=== PATIENT | female | born 1985 | race Caucasian/White ===

== ENCOUNTER 2022-09-16 16:28 | Outpatient (CLI) | payer OTHER, SELFPAY ==
[2022-09-16 17:00] LABS: Hematocrit 37.1 % (37.0-47.0); Mean Corpuscular Volume 97.1 fl (80-100); Mean Platelet Volume 10.1 fl (7.4-10.4); Platelet Count Result 279 k/mm3 (150-375); Red Blood Count 3.82 M/mm3 (4.2-5.4); Red Cell Distribution Width 12.2 % (11.5-14.5); White Blood Count 10.5 K/mm3 (4.5-10.0)
[2022-09-16 17:09] LABS: Alanine Aminotransferase 19 U/L (6-35); Alkaline Phosphatase 76 U/L (38-126); Anion Gap 5 mmol/L (8-16); Aspartate Amino Transferase 25 U/L (14-36); Bilirubin,Total 0.3 mg/dL (0.2-1.3); Blood Urea Nitrogen 11 mg/dL (7-17); Calcium 8.5 mg/dL (8.4-10.2); Carbon Dioxide 24 mmol/L (22-30); Chloride 102 mmol/L (98-107); Cholesterol 161 mg/dL (0-200); Estimated Glomerular Filt Rate > 60; Glucose 85 mg/dL (65-110); HDL Direct 56 mg/dL; Potassium 4.1 mmol/L (3.4-5.0); Sodium 131 mmol/L (137-145); Triglycerides 310 mg/dL (<150)
[2022-09-16 17:14] LABS: Appearance Urine Slightly Cloudy (Clear); Bilirubin Urine Negative (Negative); Blood Urine 1+ (Negative); Color Urine Yellow (Yellow); Glucose Urine UA Negative (Negative); Ketones Urine Negative (Negative); Leukocyte Esterase Ur Negative LEU/UL (NEGATIVE); Nitrate Urine Negative (Negative); Protein Urine Negative (Negative); Specific Grav Ur 1.025 (1.001-1.035); Urobilinogen Urine 0.2 mg/dL (<2.0); pH Urine 5.5 (5.0-9.0)
[2022-09-16 17:19] LABS: LDL Cholesterol Direct 65 mg/dL
[2022-09-16 17:20] LABS: Add Urine Microscopic? YES; Bacteria Urine Trace /hpf; Mucus Urine Rare /lpf; RBC Urine 0-2 /hpf (0-2); Squamous Epithelial Cell Urine Many /hpf (Few); WBC Urine 0-3 /hpf (0-3)
[2022-09-16 17:24] LABS: Beta HCG Quantitative < 2.39 mIU/ML
[2022-09-16 18:15] LABS: Vitamin D 25 Hydroxy 26.8 ng/mL
[2022-09-16 18:31] LABS: Rubella IgG Antibody 27.9 IU/ML
[2022-09-16 18:46] LABS: Hepatitis B Surface Anti Res Negative; Hepatitis C Virus Antibody Negative (Negative)
[2022-09-18 12:54] LABS: NIL 0.01 IU/mL; Quantiferon TB Plus, 1T NEGATIVE (NEGATIVE); TB2-NIL 0.01 IU/mL
[2022-09-19 13:20] LABS: Hepatitis A Antibody Total Nonreactive (Nonreactive)
[2022-09-21 10:49] LABS: Rubeola Measles IgG >300.00 AU/mL
== END 2022-09-16 16:29 | disposition home or self-care (01) ==
PROVIDERS: PCP Emergency Medicine; Visit Provider Obstetrics & Gynecology
DX: Z02.1 Encounter for pre-employment examination (principal)
CPT/HCPCS: 36415; 80053; 80061; 81001; 82306; 83036; 84439; 84443; 84702; 85027; 86480; 86706; 86708; 86735; 86765; 86787; 86803

== ENCOUNTER 2022-11-13 15:38 | Outpatient (CLI) | payer OTHER, SELFPAY ==
--- NOTE | ~2022-11-13 | MM_ITS ---
EXAMINATION: MM screening [facility] BI w [place] HISTORY: Screening TECHNIQUE: Craniocaudal and mediolateral oblique 3-D tomosynthesis images were obtained and synthetic 2-D images were generated. CAD analysis was submitted and interpreted. COMPARISON: No prior mammogram is available for comparison at this institution. BREAST PARENCHYMAL COMPOSITION: The breasts are almost entirely fatty. FINDINGS: There is no evidence of suspicious mass, calcification, or architectural distortion to sugg est malignancy in either breast. There has been no suspicious interval change. IMPRESSION: 1. No mammographic evidence of malignancy. 2. Recommend routine screening mammography in one year. BI-RADS Category 1: Negative Reviewed, dictated and finalized at location A.
== END 2022-11-13 15:39 | disposition home or self-care (01) ==
LOC: ANHIMG 15:44
PROVIDERS: PCP Emergency Medicine; Visit Provider Emergency Medicine
DX: Z12.31 Encounter for screening mammogram for malignant neoplasm of breast (principal)
CPT/HCPCS: 77063; 77067

== ENCOUNTER 2023-04-12 08:05 | Outpatient (CLI) | payer OTHER, SELFPAY ==
--- NOTE | ~2023-04-12 | XR_ITS ---
Clinical Indication: Chest soreness, smoking history PA and lateral views of the chest: Comparison: None Findings: The lungs are clear, without evidence of focal consolidation or pleural effusion. Cardiome diastinal silhouette is within normal limits. Bones and soft tissues are unremarkable. Impression: Normal chest. Reviewed, dictated and finalized at location . Impression: Normal chest.
[2023-04-12 09:23] LABS: Hematocrit 39.9 % (37.0-47.0); Hemoglobin 13.5 g/dL (12.0-15.0); Mean Corpuscular HGB Conc 33.8 g/dl (32-36); Mean Corpuscular Hemoglobin 34.1 pg (26-34); Mean Corpuscular Volume 100.8 fl (80-100); Mean Platelet Volume 10.2 fl (7.4-10.4); Platelet Count Result 237 k/mm3 (150-375); Red Blood Count 3.96 M/mm3 (4.2-5.4); Red Cell Distribution Width 12.4 % (11.5-14.5); White Blood Count 10.7 K/mm3 (4.5-10.0)
[2023-04-12 09:32] LABS: Anion Gap 5 mmol/L (8-16); Blood Urea Nitrogen 8 mg/dL (7-17); Calcium 8.6 mg/dL (8.4-10.2); Carbon Dioxide 26 mmol/L (22-30); Chloride 105 mmol/L (98-107); Estimated Glomerular Filt Rate > 60; Glucose 92 mg/dL (65-110); Potassium 3.9 mmol/L (3.4-5.0); Sodium 136 mmol/L (137-145)
== END 2023-04-12 08:06 | disposition home or self-care (01) ==
PROVIDERS: PCP Emergency Medicine; Visit Provider Emergency Medicine
DX: E87.1 Hypo-osmolality and hyponatremia (principal); D72.829 Elevated white blood cell count, unspecified; Z72.0 Tobacco use
CPT/HCPCS: 36415; 71046; 80048; 85027

== ENCOUNTER 2023-04-20 13:46 | Outpatient (CLI) | payer OTHER, SELFPAY ==
[2023-04-20 16:19] LABS: Folic Acid > 20.0 ng/mL (2.76->20)
[2023-04-20 22:21] LABS: Free T4 Free Thyroxine 1.06 ng/mL (0.78-2.19)
[2023-04-23 05:21] LABS: Thyroid Peroxidase Antibodies <1 IU/mL (<9)
== END 2023-04-20 13:47 | disposition home or self-care (01) ==
LOC: ANHLAB 13:48
PROVIDERS: PCP Emergency Medicine; Visit Provider Emergency Medicine
DX: E80.3 Defects of catalase and peroxidase (principal); E55.9 Vitamin D deficiency, unspecified; R63.5 Abnormal weight gain
CPT/HCPCS: 36415; 82306; 82607; 82746; 84439; 84443; 86376

== ENCOUNTER 2023-05-13 16:31 | Emergency (ER) | payer OTHER, SELFPAY ==
--- NOTE | ~2023-05-13 | XR_ITS ---
EXAMINATION: XR lumbar spine 2-3V DATE: 05/13/2023 17:00 INDICATION: Low back pain. TECHNIQUE: 3 views of lumbar spine were obtained. COMPARISON: None. FINDINGS: Bone alignment is normal. Vertebral body heights are normal. There is moderately decreased disc height at L5-S1. There are endplate osteophytes at all levels. There is multilevel facet joint o steoarthritis. There is an intrauterine device in expected position. IMPRESSION: 1. Moderate lower lumbar spondylosis. Reviewed, dictated and finalized at location E.
[2023-05-13 16:38] VITALS: BP 124/82; PULSE 88; RESP 16; TEMP 36.6; O2SAT 100
--- NOTE | 2023-05-13 16:43 | ED.BACK ---
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 States the pain is primarily on the right side and radiates around right hip but left side is also painful. Denies any pain shooting down legs, numbness, tingling, weakness to lower extremities. Denies any loss of bowel or bladder. Has taken Tylenol at 2:00 p.m.. Related Data Home Medications Medication Instructions Recorded Confirmed sertraline 50 mg tablet 25 mg PO DAILY 10/26/22 05/13/23 levonorgestrel 14 mcg/24 hrs (3 1 device intrauterine ONCE 03/02/23 05/13/23 yrs) 13.5 mg intrauterine device (Maritza) ergocalciferol (vitamin D2) 1,250 1,250 mcg PO DAILY 05/13/23 05/13/23 mcg (50,000 unit) capsule Allergies Allergy/AdvReac Type Severity Reaction Status Date / Time prednisolone Allergy Intermediate Redness of Verified 05/13/23 17:04 Skin Review of Systems Review of Systems: All systems reviewed & are unremarkable except as noted in HPI and below Constitutional: Constitutional: Denies body ache(s), Denies chills, Denies fatigue, Denies fever(s), Denies headache(s), Denies malaise and Denies weakness Eyes: Eyes: Denies blurry vision, Denies irritation and Denies loss of vision ENT: Denies otalgia, Denies headache(s), Denies nasal discharge, Denies sinus pain and Denies sore throat Cardiovascular: Cardiovascular: Denies chest pain, Denies irregular heart rhythm and Denies dyspnea Respiratory: Respiratory: Denies dyspnea Gastrointestinal: Gastrointestinal: Denies abdominal pain, Denies melena, Denies hematochezia, Denies diarrhea, Denies nausea and Denies vomiting Musculoskeletal: Musculoskeletal: Reports back pain, Denies myalgias and Denies arthralgias Integumentary/Breasts: Skin/Breast: Denies pruritus and Denies rash Neurologic: Denies headache(s), Denies loss of vision and Denies weakness Psychiatric: Psychiatric: Reports no additional psychiatric complaints Endocrine: Endocrine: Denies fatigue PMFSH Past Medical History Medical History Anxiety and depression on meds Bacterial vaginal infection Encounter for insertion of intrauterine contraceptive device Irregular periods/menstrual cycles Vaginal discharge Vaginal odor Surgical History Surgical History Delivery by section (03/17/17) primary c/s failed induction distress Family History Family History Mother Lymphoma Other Breast cancer 5 paternal aunts Lung cancer paternal grandfather Social History Social History Smoking status: Current some day smoker Tobacco type: cigarettes Alcohol intake: current Drinks per week: 3 Substance use: never Substance use type: does not use Lack of Transportation: No Lack of Food: Sometimes True Current Housing: I Have Housing Concerned About Future Housing: No Difficulty Paying Gas/Electric Bills: No Difficulty Paying for Meds: No Currently Unemployed: No Education: Bachelor's Degree Difficulty w/ Childcare or Family Care: YES Living arrangements: other Additional living arrangements comments: Occupation/Education: occupation Additional occupation/education comments: [employer] Gender identity (if verbalized by the patient): Female Sexual Orientation (if Verbalized by the Patient): Straight or Heterosexual Comments At time of signature, agree with nursing past medical, surgical
== END 2023-05-13 17:21 | disposition home or self-care (01) ==
PROVIDERS: Emergency Provider Nurse Practitioner Family
DX: M47.816 Spondylosis without myelopathy or radiculopathy, lumbar region (principal); S39.012A Strain of muscle, fascia and tendon of lower back, initial encounter; X50.9XXA Other and unspecified overexertion or strenuous movements or postures, initial encounter; Y99.0 Civilian activity done for income or pay; F41.9 Anxiety disorder, unspecified; F32.A Depression, unspecified; F17.210 Nicotine dependence, cigarettes, uncomplicated
CPT/HCPCS: 72100; 99213; G0463

== ENCOUNTER 2023-08-05 11:27 | Outpatient (CLI) | payer OTHER, SELFPAY ==
[2023-08-05 11:48] LABS: Basophils Absolute Auto 0.1 K/mm3 (0.0-0.1); Basophils Percent Auto 0.9 % (0.2-1.2); Eosinophils Absolute Auto 0.2 K/mm3 (0-0.3); Eosinophils Percent Auto 2.1 % (0-4.4); Hematocrit 38.7 % (37.0-47.0); Hemoglobin 13.4 g/dL (12.0-15.0); Immature Granulocyte Absolute 0.04 K/mm3 (0.00-0.031); Immature Granulocyte Percent A 0.4 % (0-0.5); Lymphocytes Absolute Auto 3.35 K/mm3 (0.9-3.2); Lymphocytes Percent Auto 33.7 % (18.3-44.2); Mean Corpuscular HGB Conc 34.6 g/dl (32-36); Mean Corpuscular Volume 98.2 fl (80-100); Mean Platelet Volume 9.5 fl (7.4-10.4); Monocytes Absolute Auto 0.9 K/mm3 (0.1-0.6); Neutrophils Absolute Auto 5.4 K/mm3 (1.3-6.7); Neutrophils Percent Auto 53.9 % (45.5-73.1); Platelet Count Result 284 k/mm3 (150-375); Red Blood Count 3.94 M/mm3 (4.2-5.4); Red Cell Distribution Width 11.7 % (11.5-14.5); White Blood Count 9.9 K/mm3 (4.5-10.0)
[2023-08-05 12:17] LABS: Alanine Aminotransferase 18 U/L (6-35); Albumin Level 4.1 g/dL (3.5-5.1); Alkaline Phosphatase 74 U/L (38-126); Anion Gap 8 mmol/L (8-16); Aspartate Amino Transferase 28 U/L (14-36); Bilirubin,Total 0.4 mg/dL (0.2-1.3); Blood Urea Nitrogen 9 mg/dL (7-17); CRP 0.5 mg/dL (<1.0); Calcium 8.6 mg/dL (8.4-10.2); Carbon Dioxide 24 mmol/L (22-30); Chloride 105 mmol/L (98-107); Estimated Glomerular Filt Rate > 60; Glucose 88 mg/dL (65-110); Potassium 4.3 mmol/L (3.4-5.0); Sodium 137 mmol/L (137-145)
[2023-08-05 12:40] LABS: Erythrocyte Sedimentation Rate 7 mm/hr (0-20)
== END 2023-08-05 11:28 | disposition home or self-care (01) ==
PROVIDERS: Visit Provider Internal Medicine Hematology & Oncology
DX: D72.829 Elevated white blood cell count, unspecified (principal)
CPT/HCPCS: 36415; 80053; 85025; 85652; 86140

== ENCOUNTER 2023-08-31 10:55 | Outpatient (CLI) | payer OTHER, SELFPAY | END 2023-08-31 10:56 | disposition home or self-care (01) | LOC: ANHLAB 10:59 | PROVIDERS: Visit Provider Internal Medicine Hematology & Oncology | DX: D72.829 Elevated white blood cell count, unspecified (principal) | CPT/HCPCS: 36415 ==

== ENCOUNTER 2023-09-03 07:47 | Outpatient (CLI) | payer OTHER, SELFPAY | END 2023-09-03 07:48 | disposition home or self-care (01) | DX: H90.6 Mixed conductive and sensorineural hearing loss, bilateral (principal) | CPT/HCPCS: 92557; 92567 ==

== ENCOUNTER 2024-02-22 12:53 | Outpatient (CLI) | payer OTHER, SELFPAY ==
[2024-02-22 13:52] LABS: Hematocrit 37.2 % (37.0-47.0); Hemoglobin 13.2 g/dL (12.0-15.0); Mean Corpuscular HGB Conc 35.5 g/dl (32-36); Mean Corpuscular Volume 95.9 fl (80-100); Mean Platelet Volume 10.4 fl (7.4-10.4); Platelet Count Result 260 k/mm3 (150-375); Red Blood Count 3.88 M/mm3 (4.2-5.4); Red Cell Distribution Width 12.6 % (11.5-14.5); White Blood Count 9.3 K/mm3 (4.5-10.0)
[2024-02-22 14:05] LABS: Alanine Aminotransferase 14 U/L (6-35); Albumin Level 4.2 g/dL (3.5-5.1); Alkaline Phosphatase 60 U/L (38-126); Anion Gap 8 mmol/L (4-12); Aspartate Amino Transferase 20 U/L (14-36); Bilirubin,Total 0.7 mg/dL (0.2-1.3); Blood Urea Nitrogen 10 mg/dL (7-17); Calcium 8.7 mg/dL (8.4-10.2); Carbon Dioxide 22 mmol/L (22-30); Chloride 106 mmol/L (98-107); Cholesterol 141 mg/dL (0-200); Estimated Glomerular Filt Rate > 60; Glucose 137 mg/dL (65-110); HDL Direct 44 mg/dL; Potassium 3.5 mmol/L (3.4-5.0); Sodium 136 mmol/L (137-145); Triglycerides 222 mg/dL (<150)
[2024-02-22 14:16] LABS: LDL Cholesterol Direct 82 mg/dL
[2024-02-22 14:29] LABS: Hemoglobin A1C 4.8 % (<5.7)
[2024-02-22 14:34] LABS: Appearance Urine Clear (Clear); Bacteria Urine 4+ /hpf; Bilirubin Urine Negative (Negative); Blood Urine 1+ (Negative); Color Urine Yellow (Yellow); Glucose Urine UA Negative (Negative); Ketones Urine Negative (Negative); Leukocyte Esterase Ur Negative LEU/UL (Negative); Need Manual Microscopic Reviewed; Nitrate Urine Positive (Negative); Protein Urine Negative (Negative); RBC Urine 0-2 /hpf (0-2); Specific Grav Ur 1.014 (1.001-1.035); Squamous Epithelial Cell Urine None Seen /hpf (Few); Urobilinogen Urine 0.2 mg/dL (<2.0)
[2024-02-22 14:35] LABS: Thyroid Stimulating Hormone 0.802 uIU/mL (0.465-4.680)
[2024-02-22 14:37] LABS: Add Urine Microscopic? YES
[2024-02-22 14:41] LABS: Free T4 Free Thyroxine 0.95 ng/mL (0.78-2.19); Vitamin D 25 Hydroxy 31.3 ng/mL
[2024-02-22 15:08] LABS: Creatinine Urine 113.1 mg/dL
[2024-02-22 15:18] LABS: MALB Creatinine Ratio < 5.3 mg/g (0-30); Microalbumin Urine Random < 6.0 mg/L (0-16.7)
== END 2024-02-22 12:54 | disposition home or self-care (01) ==
PROVIDERS: PCP Emergency Medicine; Visit Provider Emergency Medicine
DX: Z00.00 Encounter for general adult medical examination without abnormal findings (principal); F41.9 Anxiety disorder, unspecified; D72.829 Elevated white blood cell count, unspecified; Z87.891 Personal history of nicotine dependence
CPT/HCPCS: 36415; 80053; 80061; 81001; 82043; 82306; 83036; 84439; 84443; 85027

== ENCOUNTER 2024-06-28 15:17 | Outpatient (CLI) | payer OTHER, SELFPAY ==
--- NOTE | ~2024-06-28 | MM_ITS ---
EXAMINATION: MM screening [place] BI w [place] HISTORY: Screening TECHNIQUE: Craniocaudal and mediolateral oblique 3-D tomosynthesis images were obtained and synthetic 2-D images were generated. CAD analysis was submitted and interpreted. COMPARISON: 11/13/2022 BREAST PARENCHYMAL COMPOSITION: Not Dense: The breasts are almost entirely fatty. FINDINGS: There is no evidence of suspicious mass, calcification, or architectural distortion to sugg est malignancy in either breast. There has been no suspicious interval change. IMPRESSION: 1. No mammographic evidence of malignancy. 2. Recommend routine screening mammography in one year. BI-RADS Category 1: Negative Reviewed, dictated and finalized at location B.
== END 2024-06-28 15:18 | disposition home or self-care (01) ==
LOC: ANHIMG 15:24
PROVIDERS: PCP Emergency Medicine; Visit Provider Obstetrics & Gynecology
DX: Z12.31 Encounter for screening mammogram for malignant neoplasm of breast (principal)
CPT/HCPCS: 77063; 77067

== ENCOUNTER 2025-03-15 12:28 | Outpatient (CLI) | payer OTHER, SELFPAY ==
--- OUTSIDE RECORDS SUMMARY | 2025-03-15 12:32 | XMS_ITS | Referral Summary ---
Author Organization [facility] [address] Address [address] [place] [id number] Care Team Providers Care Drying Machine Operator Name Role Phone Russ Chowdhury MD Primary Care Provider [phone] Allergies Active Allergy Reactions Criticality Noted Date Comments Corticosteroids (Glucocorticoids) Rash Medium Dog Dander Rhinitis Low 08/28/2024 Grass Pollen Rhinitis Low 08/28/2024 Hazelnut Rhinitis Low 08/28/2024 Mold Rhinitis Low 08/28/2024 Prednisone Rash Medium 06/16/2022 Medications norgestimate-et hinyl estradioL (ORTHO TRI-CYCLEN) 0.18/0.215/0.25 mg-35 mcg (28) per tablet daily Active sertraline (ZOLOFT) 50 mg tablet Take 1 tablet (50 mg total) by mouth daily 2 Active fluticasone propionate (FLONASE) 50 mcg/actuation nasal sprayIndication s:Acute suppurative otitis media of left ear without spontaneous rupture of tympanic membrane, recurrence not specified Administer 2 sprays into each nostril daily 1 each 2 Active Additional Information Patient not taking.Reported on 10/20/2024 azelastine (ASTELIN) 137 mcg (0.1 %) nasal spray Administer 1-2 sprays into affected nostril(s) 2 (two) times a day 3 Active budesonide (RHINOCORT AQUA) 32 mcg/actuation nasal spray Administer 2 sprays into affected nostril(s) daily 3 Active cetirizine (ZyrTEC) 10 mg tablet Take 1 tablet (10 mg total) by mouth daily 3 Active ergocalciferol (VITAMIN D) 50,000 unit capsule 3 Active levonorgestreL (TEE) 14 mcg/24 hrs (3 yrs) 13.5 mg IUD 182.25 mg by intrauterine route as directed Active PARoxetine CR (PAXIL-CR) 25 mg 24 hr tablet Take 1 tablet (25 mg total) by mouth daily Active multivitamin tablet Take 1 tablet by mouth daily Active PARoxetine (PAXIL) 20 mg tablet Take 1 tablet (20 mg total) by mouth daily 5 Active multivitamin with minerals (Daily Multivitamin-Mi nerals) tablet Take 1 tablet by mouth daily Active Active Problems No known active problems Social History Tobacco Use Types Packs/Day Years Used Date Smoking Tobacco: Former Cigarettes Smokeless Tobacco: Never Tobacco Cessation:Counseling Given: Not Answered Comments Unknown Sex and Gender Information Value Date Recorded Sex Assigned at Not on file Legal Sex Female 11:02 AM ENAMEL FINISHER Gender Identity Not on file Sexual Orientation Not on file Last Filed Vital Signs Vital Sign Reading Time Taken Comments Blood Pressure 122/82 10/20/2024 2:24 PM ENAMEL FINISHER Pulse 80 10/20/2024 2:24 PM ENAMEL FINISHER Temperature 36.8 C (98.3 F) 10/20/2024 2:24 PM ENAMEL FINISHER Respiratory Rate 20 10/20/2024 2:24 PM ENAMEL FINISHER Oxygen Saturation 99% 10/20/2024 2:24 PM ENAMEL FINISHER Inhaled Oxygen Concentration - - Weight 103.9 kg (229 lb) 04/28/2024 5:55 PM CDT Height 162.6 cm (5' 4) 10/20/2024 2:24 PM ENAMEL FINISHER Body Mass Index 39.31 04/28/2024 5:55 PM CDT Plan of Treatment Not on file Insurance [facility] Care Teams Drying Machine Operator Relationship Specialty Start Date End Date Russ Chowdhury MD [address] [place] [id number] PCP - General Emergency Medicine 11/21/23
--- OUTSIDE RECORDS SUMMARY | 2025-03-15 12:32 | XMS_ITS | Clinical Summary ---
Author Organization [facility] [address] Address [address] [place] [id number] Care Team Providers Care Casing In Line Setter Name Role Phone Russ Chowdhury MD Primary Care Provider [phone] Allergies Active Allergy Reactions Criticality Noted Date [...] on file Legal Sex Female 11:02 AM POUCH MAKER Gender Identity Not on file Sexual Orientation Not on file Obstetrics History Last Filed Vital Signs Vital Sign Reading Time Taken Comments Blood Pressure 122/82 10/20/2024 2:24 PM POUCH MAKER Pulse 80 10/20/2024 2:24 PM POUCH MAKER Temperature 36.8 C (98.3 F) 10/20/2024 2:24 PM POUCH MAKER Respiratory Rate 20 10/20/2024 2:24 PM POUCH MAKER Oxygen Saturation 99% 10/20/2024 2:24 PM POUCH MAKER Inhaled Oxygen Concentration - - Weight 103.9 kg (229 lb) 04/28/2024 5:55 PM CDT Height 162.6 cm (5' 4) 10/20/2024 2:24 PM POUCH MAKER Body Mass Index 39.31 04/28/2024 5:55 PM CDT Plan of Treatment Health Maintenance Due Date Last Done Comments Breast Cancer Screening-Mammogram 1983 Cervical Cancer Screening 1983 Depression Screening 1983 Hepatitis C Screening 1983 Varicella Vaccines (1 of 2 - 13+ 2-dose series) 1996 Hepatitis B Screening 2001 Regular Well Visit/Exam 18-64 2001 Covid-19 Vaccine ( season) 2024 06/02/2022, 07/23/2021, 01/09/2021, Additional history exists Influenza Vaccine (#1) 2025 , 06/02/2022, 06/30/2021, Additional history exists DTaP/Tdap/Td Vaccine (7 - Td or Tdap) 07/07/2032 07/07/2022, 01/01/2017, 11/30/2007, Additional history exists HPV Vaccines Aged Out No longer eligi ble based on patient's age to complete this topic Pneumococcal vaccine <65 Aged Out No longer eligible based on patient's age to complete this topic Insurance Care Teams Casing In Line Setter Relationship Specialty Start Date End Date Russ Chowdhury MD [address] [place] [id number] PCP - General Emergency Medicine 11/21/23
--- OUTSIDE RECORDS SUMMARY | 2025-03-15 12:33 | XMS_ITS | Clinical Summary ---
Author Organization [facility] Nik Garciaalyse Address [address] [address] Care Team Providers Care Continuous Drier Helper Name Role Phone Russ Chowdhury MD Primary Care Provider Allergies Active Allergy Reactions Criticality Noted Date Comments Prednisone Rash Medium 06/16/2022 Medications cetirizine (ZyrTEC) 10 mg tablet Take 10 mg by mouth daily. 10/23/2022 Active PARoxetine HCl (PAXIL) 20 mg tablet Take 20 mg by mouth daily. Active multivitamin (DAILY-CHELSI) tablet Take 1 Tablet by mouth daily. Active Active Problems No known active problems Family History Medical History Relation Name Comments Diabetes Father Kidney Cancer Father Breast Cancer Mother Lymphoma Mother Relation Name Status Comments Brother 1 Alive Brother 2 Alive Father Alive Mother Alive Sister 1 Alive Sister 2 Alive Sister 3 Alive Son Alive Social History Tobacco Use Types Packs/Day Years Used Date Smoking Tobacco: Former Cigarettes Q uit: 06/2023 Smokeless Tobacco: Never Alcohol Use Standard Drinks/Week Comments Yes 0 (1 standard drink = 0.6 oz pur e alcohol) Comments Unknown Sex and Gender Information Value Date Recorded Sex Assigned at Not on file Legal Sex Female 10:38 AM CDT Gender Identity Not on file Sexual Orientation Not on file Last Filed Vital Signs Vital Sign Reading Time Taken Comments Blood Pressure 173/109 08/05/2023 10:57 AM CARPENTER RAILCAR Pulse 81 08/05/2023 10:52 AM CARPENTER RAILCAR Temperature 36.2 C (97.2 F) 08/05/2023 10:52 AM CARPENTER RAILCAR Respiratory Rate 10 08/05/2023 10:52 AM CARPENTER RAILCAR Oxygen Saturation 99% 08/05/2023 10:52 AM CARPENTER RAILCAR Inhaled Oxygen Concentration - - Weight 107.5 kg (237 lb) 08/05/2023 10:52 AM CARPENTER RAILCAR Height 162.6 cm (5' 4) 08/05/2023 10:52 AM CARPENTER RAILCAR Body Mass Index 40.68 08/05/2023 10:52 AM CARPENTER RAILCAR Plan of Treatment Health Maintenance Due Date Last Done Comments HEPATITIS B VACCINES (1 of 3 - 19+ 3-dose series) 2002 HPV/Cotest (21-29) 2004 CERVICAL CANCER SCREENING 2013 HPV/Cotest (30-65) 2013 PAP SMEAR 2013 BREAST CANCER SCREENING 2023 INFLUENZA VACCINE (#1) 2025 2, 06/27/2018, 10/26/2016 DTAP/TDAP/TD VACCINES (7 - Td or Tdap) 07/07/2032 07/07/2022, 01/01/2017, 04/10/1987, Additional history exists HPV VACCINES Aged Out No longer eligi christie based on patient's age to complete this topic Insurance [facility] MEDICAID Care Teams Continuous Drier Helper Relationship Specialty Start Date End Date Russ Chowdhury MD [address] [place] [phone] PCP - General Family Practice 08/05/23
--- OUTSIDE RECORDS SUMMARY | 2025-03-15 12:33 | XMS_ITS | Clinical Summary ---
Author Organization [facility] Address [address] [place] [address] Care Team Providers Care Cloth Measurer Name Role Phone Russ Chowdhury MD Primary Care Provider [phone] Source Comments [facility],non-owned Affiliates and Associated Physician Practices is amultiple site organization consisting of ambulatory clinics and hospital sitesin [place], [place], [place] and [place]. This disclosure is being madepursuant to the Care Everywhere program and may not contain all information available regarding this patient. Last updated 18.[facility] Allergies Active Allergy Reactions Criticality Noted Date Comments Corticosteroids Rash Medium 08/28/2024 Dog Epithelium Rhinitis 08/28/2024 Grass Pollen(K-O-R-T-Swt Tha) Rhinitis 08/28 Corylus Rhinitis 08/28/2024 Molds & Smuts Rhinitis 08/28/2024 Prednisone Rash Medium 06/16/2022 Steroids cause redness on face Medications * Be aware that medications may not be up to date on this document. Alwaysverify current medications with the patient. Levonorgestrel 13.5 MG 13.5 (thirteen and one-half) Each by Intrauterine route as directed Active azelastine (Astelin) 0.1 % nasal spray [place] 1 (one) spray to 2 (two) sprays into each nostril 2 times daily Aim tip of spray bottle towards the SAME EYE as the nostril you are spraying in (e.g. when spraying into the left nostril, aim it towards the left eye) 30 mL 3 4 Active ofloxacin (Floxin) 0.3 % otic solution Instill 5 (five) drops into right ear 2 times daily 5 mL 4 Active Multiple Vitamin (Multi-Vitamin) TABS Take 1 (one) tablet by mouth once daily Active cetirizine (ZyrTEC) 10 MG tablet Take 1 (one) tablet by mouth once daily Active PARoxetine (Paxil) 20 MG tablet Take 1 (one) tablet by mouth once daily Active multivitamin daily tablet Take 1 (one) tablet by mouth daily with food Active Other Jayde IUD Active docusate sodium (Colace) 100 MG capsule Take 1 (one) capsule by mouth 2 times daily 30 capsule 4 Active Active Problems Problem Noted Date Diagnosed Date Mixed anxiety and depressive disorder 06/19/2024 Morbid obesity 06/19/2024 Smoker 06/19/2024 Gastrocnemius equinus of left lower extremity Plantar fasciitis 03/11/2021 Immunizations Immunization Administration Dates Next Due INFLUENZA VACCINE, TRIV. (AF LURIA, FLUZONE TRIVALENT; 6MO+) (IIV3) 06/26/2024 COVID PFIZER BIVALENT 12Y+ 30mcg/0.3ML 06/02/2022 Covid Moderna primary monova lent 12+ yr 0.5mL 01/09/2021,12/12/2020 Covid Pfizer primary monoval ent 12+ yr 0.3mL Purple cap 07/23/2021 DTP, HISTORIC VACCINE 04/10/1987, 986,02/19/1984,1983 FLU VACCINE QUAD IIV4 SPLIT 0.25 ML IM 06/30/2021,07/11/2019 FLU VACCINE TRI IIV3 SPLIT I M (FLUVIRIN) 06/27/2018 INFLUENZA VACCINE, QUADR. (F LUZONE; FLULAVAL; FLUARIX; AFLURIA QUADRIVALENT; 6MO+), 0.5 ML (IIV4) 06/02/2022,10/26/2016 MMR VACCINE 04/26/1992,01/10/1986 POLIO OPV 05/13/1988, 6,02/19/1984,1983 TD (AGE 7-ADULT) 11/30/2007,06/22/1997 TDAP, HISTORIC VACCINE 07/07/2022,01/01/2017 Family History Medical History Relation Name Comments Alcohol abuse Brother Alcohol abuse Father Diabetes - Type 1 Father Alcohol abuse Mother Arthritis - Rheumatoid Mother CAD (Coronary Artery Disease) Mother Cancer - Other Mother Hypertension Mother Relation Name Status Comments Brother Father Mother Social History Tobacco Use Types Packs/Day Years Used Date Smoking Tobacco: Some Days Cigarettes Smokeless Tobacco: Never Comments:Pt has nicotine pat (09/01/24). Alcohol Use Standard Drinks/Week Comments Yes 0 (1 standard drink = 0.6 oz pur e alcohol) occassionally - maybe 3/month AUDIT-C Answer Date Recorded Q1: How often do you have a drink containing alc ohol? Monthly or less 09/01/2024 Q2: How many drinks containi ng alcohol do you have on a typical day when you are drinking? 1 or 2 09/01/2024 Q3: How often do you have si x or more drinks on one occasion? Never 09/01/2024 PHQ-2 Answer Date Recorded Patient Health Questionnaire-2 Score 3 07/06/2023 Comments No Sex and Gender Information Value Date Recorded Sex Assigned at Not on file Legal Sex Female 12:18 PM MERCHANDISE COLLECTOR Gender Identity Not on file Sexual Orientation Not on file Last Filed Vital Signs Vital Sign Reading Time Taken Comments Blood Pressure 118/70 09/01/2024 5:00 PM MERCHANDISE COLLECTOR Pulse 80 09/01/2024 5:03 PM MERCHANDISE COLLECTOR Temperature 36.4 C (97.6 F) 09/01/2024 5:00 PM MERCHANDISE COLLECTOR Respiratory Rate 12 09/01/2024 5:03 PM MERCHANDISE COLLECTOR Oxygen Saturation 93% 09/01/2024 5:02 PM MERCHANDISE COLLECTOR Inhaled Oxygen Concentration - - Weight 104.3 kg (230 lb) 10/30/2024 2:30 PM MERCHANDISE COLLECTOR Height 162.6 cm (5' 4) 10/30/2024 2:30 PM MERCHANDISE COLLECTOR Body Mass Index 39.48 10/30/2024 2:30 PM MERCHANDISE COLLECTOR Plan of Treatment Health Maintenance Due Date Last Done Comments LIPID TESTING 1983 HIV SCREENING 1998 HEPATITIS C SCREENING 03/05/2001 HEPATITIS B VACCINE (1 of 3 - 19+ 3-dose series) 2002 PNEUMOCOCCAL VACCINE (1 of 2 - PCV) 2002 PAP SMEAR 2004 MAMMOGRAM 02/14/2021 02/14/2019 SCREENING FOR DIABETES 07/06/2023 COVID-19 VACCINE ( season) 2024 06/02/2022, 07/23/2021, 01/09/2021, Additional history exists DEPRESSION SCREENING 09/06/2024 INFLUENZA VACCINE (#1) 2025 , 06/02/2022, 06/30/2021, Additional history exists DTAP/TDAP/TD VACCINES (9 - Td or Tdap) 07/07/2032 07/07/2022, 01/01/2017, 11/30/2007, Additional history exists ZOSTER VACCINE (1 of 2) 2033 HIB VACCINE Aged Out No longer eligi ble based on patient's age to complete this topic HPV VACCINE Aged Out No longer eligi ble based on patient's age to complete this topic MENINGOCOCCAL (Group B) VACCINE SHARED DECISION-MAKING Aged Out No longer eligible based on patient's age to complete this topic MENINGOCOCCAL GROUPS A/C/Y/W VACCINE Aged Out No longer eligible based on patient's age to complete this topic Medical Devices Implanted Type Area Adapted Physical Education Specialist Device Identifier Shelf Expiration Date Model / Serial / Lot Impl Coclr 4mm 4.5mm Ponto Bhx 12mm W 1 - [id number] Implanted:Qty: 1 on 09/01/2024 by Hussein Elmore MD at [facility] Left: Ear [employer] 06/11/2028 [id number] / [id number] / [id number] Impl Coclr 4mm 4.5mm Ponto Bhx 12mm W 1 - [id number] Implanted:Qty: 1 on 09/01/2024 by Hussein Elmore MD at [facility] Right: Ear [employer] 01/26/2028 [id number] / [id number] / [id number] Insurance [facility] Care Teams Cloth Measurer Relationship Specialty Start Date End Date Russ Chowdhury MD [address] [place] [id number] PCP - General Family Medicine 07/06/23
[2025-03-15 13:43] LABS: Hemoglobin A1C 5.3 % (<5.7)
[2025-03-18 23:07] LABS: Free Testosterone (Direct) 1.2 pg/mL (0.0-4.2)
[2025-03-19 18:08] LABS: Estradiol, Sensitive 141.8 pg/mL (.)
== END 2025-03-15 12:29 | disposition home or self-care (01) ==
LOC: ANHLAB 12:31
PROVIDERS: PCP Nurse Practitioner Family; Visit Provider Obstetrics & Gynecology
DX: N95.1 Menopausal and female climacteric states (principal)
CPT/HCPCS: 36415; 82670; 83036; 84402

== ENCOUNTER 2025-06-29 09:35 | Outpatient (CLI) | payer OTHER, SELFPAY ==
--- NOTE | ~2025-06-29 | MM_ITS ---
EXAMINATION: MM screening [place] BI w [place] HISTORY: Screening TECHNIQUE: Craniocaudal and mediolateral oblique 3-D tomosynthesis images were obtained and synthetic 2-D images were generated. CAD analysis was submitted and interpreted. COMPARISON: Comparison to multiple prior studies sequentially, with oldest reviewed study dated , 11/13/2022 BREAST PARENCHYMAL COMPOSITION: The breasts are almost entirely fatty. FINDINGS: There is no evidence of suspicious mass, calcification, or architectural distortion to suggest malignancy in either breast. IMPRESSION: 1. No mammographic evidence of malignancy. 2. Recommend routine screening mammography in one year. BI-RADS Category 1: Negative Reviewed, dictated and finalized at location B.
--- OUTSIDE RECORDS SUMMARY | 2025-06-29 09:49 | XMS_ITS | Clinical Summary ---
Author Organization [facility] [address] Address [address] [place] [phone] Care Team Providers Care Fruit Grower Name Role Phone Russ Chowdhury MD Primary Care Provider [phone] Allergies Active Allergy Reactions Criticality Noted Date [...] on file Legal Sex Female 11:02 AM DOUBLE SURFACE OPERATOR Gender Identity Not on file Sexual Orientation Not on file Obstetrics History Last Filed Vital Signs Vital Sign Reading Time Taken Comments Blood Pressure 122/82 10/20/2024 2:24 PM DOUBLE SURFACE OPERATOR Pulse 80 10/20/2024 2:24 PM DOUBLE SURFACE OPERATOR Temperature 36.8 C (98.3 F) 10/20/2024 2:24 PM DOUBLE SURFACE OPERATOR Respiratory Rate 20 10/20/2024 2:24 PM DOUBLE SURFACE OPERATOR Oxygen Saturation 99% 10/20/2024 2:24 PM DOUBLE SURFACE OPERATOR Inhaled Oxygen Concentration - - Weight 103.9 kg (229 lb) 04/28/2024 5:55 PM CDT Height 162.6 cm (5' 4) 10/20/2024 2:24 PM DOUBLE SURFACE OPERATOR Body Mass Index 39.31 04/28/2024 5:55 PM CDT Plan of Treatment Health Maintenance Due Date Last Done Comments Breast Cancer Screening-Mammogram 1983 Cervical Cancer Screening 1983 Depression Screening 1983 Hepatitis C Screening 1983 Varicella Vaccines (1 of 2 - 13+ 2-dose series) 1996 Hepatitis B Screening 2001 Regular Well Visit/Exam 18-64 2001 HPV Vaccines (1 - 3-dose SCDM series) 2010 Covid-19 Vaccine ( season) 2025 06/02/2022, 07/23/2021, 01/09/2021, Additional history exists Influenza Vaccine (#1) 2025 , 06/02/2022, 06/30/2021, Additional history exists DTaP/Tdap/Td Vaccine (7 - Td or Tdap) 07/07/2032 07/07/2022, 01/01/2017, 11/30/2007, Additional history exists Pneumococcal vaccine <65 Aged Out No longer eligible based on patient's age to complete this topic Insurance Care Teams Fruit Grower Relationship Specialty Start Date End Date Russ Chowdhury MD [address] [place] [id number] PCP - General Emergency Medicine 11/21/23
--- OUTSIDE RECORDS SUMMARY | 2025-06-29 09:49 | XMS_ITS | Data Portability ---
[facility] Organization [facility] Address [address] [place] [address] Care Team Providers Care Priming Machine Operator Name Role Phone DALI LEVI Primary Care Provider Assessment No assessment recorded. Plan of Treatment Reminders Order Date Submit Date Provider Last Modified By Organization Details Last Modified Time Details Appointments ANY 15 2024 10:15A M Dali Levi DISTRIBUTION OPERATION SUPERVISOR, LANGUAGE INTERPRETER-C Not available Not available Not available Lab food allerge n panel, serum 2023 [facility], [address] [place] [address], [address], [place], [address], 06/27/2024 16:14:56 TSH, ultra-s ensitiv e, serum 2023 [facility], [address], [address], [place], [address], 06/27/2024 16:14:54 CMP, serum or plasma 2023 [facility], [address], [address], [place], [address], 06/22/2024 20:09:20 lipid panel, serum 2023 [facility], [address], [address], [place], [address], 06/22/2024 20:09:18 CBC 2023 [facility], [address], [address] [address], [place], [address], 06/22/2024 20:09:21 pap, IG + reflex HPV if ASC-U 2014 015 LIT [facility], [address] [facility], [address], [place], [address], 09/02/2015 11:58:13 hemoglo bin (Hb), blood 2013 014 LIT In-Office Order, Internal Use Only DO Not Attach Compendium DO Not Attach Compendium, Do Not Delete/merge, 07/27/2014 15:24:06 pap, LB + reflex HPV - please change code to [id number] 2013 014 [email or web address] [facility], [address] [facility], [address], [place], [address], 07/27/2014 10:33:35 urinaly sis, dipstic k 2013 014 [email or web address] In-Office Order, Internal Use Only DO Not Attach Compendium DO Not Attach Compendium, Do Not Delete/merge, 07/26/2014 15:23:59 Referral None recorde d. Procedures None recorde d. Surgeries None recorde d. Imaging None recorde d. Medication Orders Paxil 20 mg tablet 2024 025 [id number], [address], [place], [place], [id number], 12/18/2024 09:35:00 nicotin e 14 mg/24 hr daily transde rmal patch 2023 024 [facility], [address], [place], [place], [id number], 06/19/2024 14:57:41 Paxil 20 mg tablet 2023 024 [facility][id number], [address], [place], [place], [id number], 06/19/2024 15:07:47 Tri-Spr intec (28) 0.18 mg(7)/0 .215 mg(7)/0 .25 mg(7)-0 .035 mg tablet 2014 015 [facility] [place], [address], 06/19/2024 14:11:13 Ortho Tri-Cyc blaine (28) 0.18 mg(7)/0 .215mg( 7)/0.25 mg(7)-0 .035 mg tablet 2013 [facility]14 [facility] 06/19/2024 14:11:13 Patient TargetsNo targets recorded. Patient Instructions Encounter Date Encounter Id Patient Instructions Last Modified By Organization Details Last Modified Time 08/28/2015 [id number] Continue OC's daily. mpass Not available 08/28/2015 15:31:44 06/19/2024 [id number] hearing loss: care instructions Not available 06/19/2024 14:57:30 Quitting Tobacco : Care Instructions Not available 06/19/2024 14:57:30 A healthy lifestyle: care instructions Not available 06/19/2024 14:57:30 Increase intake of fresh fruits, and vegetables. Avoid packaged foods and fast foods. Follow a low salt diet, drink at least 8-10 8oz glasses of water a day, exercise most days of the week. Take all medications as prescribed. Keep appointments with PCP and all specialists. Not available 06/19/2024 14:57:17 follow up in 6 months Not available 06/19/2024 14:57:27 06/22/2024 [id number] influenza (flu) vaccine: care instructions Not available 06/26/2024 12:02:40 12/18/2024 [id number] When You Want to Lose Weight: Care Instructions Not available 12/18/2024 09:34:44 Increase intake of fresh fruits, and vegetables. Avoid packaged foods and fast foods. Follow a low salt diet, drink at least 8-10 8oz glasses of water a day, exercise most days of the week. Take all medications as prescribed. Keep appointments with PCP and all specialists. Not available 12/18/2024 09:34:48 follow up in 6 months Not available 12/18/2024 09:34:51 Reason for Referral None Reported. Results Created Date Observation Date Name Description Value Unit Range Abnormal Flag Note LastModifiedBy Organization Detail LastModifiedTime 07/26/20 14 07/26/2014 urina lysis , dipst ick Leukocytes Negati ve Not Available In-Office Order Internal Use Only DO Not Attach Compendium DO Not Attach Compendium, Do Not Delete/merge, [id number] 07/26/2014 14:46:48 07/26/20 14 07/26/2014 urina lysis , dipst ick Nitrite negati ve Not Available In-Office Order Internal Use Only DO Not Attach Compendium DO Not Attach Compendium, Do Not Delete/merge, [id number] 07/26/2014 14:46:48 07/26/20 14 07/26/2014 urina lysis , dipst ick Urobilinogen .2 Not Available In-Of fice Order Internal Use Only DO Not Attach Compendium DO Not Attach Compendium, Do Not Delete/merge, [id number] 07/26/2014 14:46:48 07/26/20 14 07/26/2014 urina lysis , dipst ick Protein Negati ve Not Available In-Office Order Internal Use Only DO Not Attach Compendium DO Not Attach Compendium, Do Not Delete/merge, [id number] 07/26/2014 14:46:48 07/26/20 14 07/26/2014 urina lysis , dipst ick pH 7.0 Not Available In-Office Order Internal Use Only DO Not Attach Compendium DO Not Attach Compendium, Do Not Delete/merge, [id number] 07/26/2014 14:46:48 07/26/20 14 07/26/2014 urina lysis , dipst ick Blood Negati ve Not Available In-Office Order Internal Use Only DO Not Attach Compendium DO Not Attach Compendium, Do Not Delete/merge, [id number] 07/26/2014 14:46:48 07/26/20 14 07/26/2014 urina lysis , dipst ick Specific Butterfield 1.015 Not Available In-Off ice Order Internal Use Only DO Not Attach Compendium DO Not Attach Compendium, Do Not Delete/merge, [id number] 07/26/2014 14:46:48 07/26/20 14 07/26/2014 urina lysis , dipst ick Ketone Negati ve Not Available In-Office Order Internal Use Only DO Not Attach Compendium DO Not Attach Compendium, Do Not Delete/merge, [id number] 07/26/2014 14:46:48 07/26/20 14 07/26/2014 urina lysis , dipst ick Bilirubin Negati ve Not Available In-Office Order Internal Use Only DO Not Attach Compendium DO Not Attach Compendium, Do Not Delete/merge, [id number] 07/26/2014 14:46:48 07/26/20 14 07/26/2014 urina lysis , dipst ick Glucose Negati ve Not Available In-Office Order Internal Use Only DO Not Attach Compendium DO Not Attach Compendium, Do Not Delete/merge, [id number] 07/26/2014 14:46:48 07/26/20 14 07/26/2014 urina lysis , dipst ick Color Yellow Not Available In-Office Order Internal Use Only DO Not Attach Compendium DO Not Attach Compendium, Do Not Delete/merge, [id number] 07/26/2014 14:46:48 07/27/20 14 07/27/2014 hemog lobin (Hb), blood HGB Not Available In-Office Order Internal Use Only DO Not Attach Compendium DO Not Attach Compendium, Do Not Delete/merge, [id number] 07/26/2014 15:10:31 06/22/20 24 06/22/2024 LIPID PANEL cholesterol, total 172 mg/dL 100-19 9 Not Available [facility] Department [address] [place], [address], 06/22/2024 20:09:18 06/22/20 24 06/22/2024 LIPID PANEL triglyceride s 153 mg/dL 0-149 above high normal Not Available [facility] Department [address] [place], [address], 06/22/2024 20:09:18 06/22/20 24 06/22/2024 LIPID PANEL HDL cholesterol 48 mg/dL 40-999 Not Available [facility] Department [address] [place], [address], 06/22/2024 20:09:18 06/22/20 24 06/22/2024 LIPID PANEL VLDL cholesterol ana 31 mg/dL 5-40 Not Available [facility] Department [address] [place], [address], 06/22/2024 20:09:18 06/22/20 24 06/22/2024 LIPID PANEL LDL chol calc (nih) 116 mg/dL 0-99 above high normal Not Available [facility] Department [address] [place] [address], [address], 06/22/2024 20:09:18 06/22/20 24 06/22/2024 COMP. METAB OLIC PANEL (14) glucose 94 mg/dL 70-99 Not Available [facility] Department [address] [place], [address], 06/22/2024 20:09:20 06/22/20 24 06/22/2024 COMP. METAB OLIC PANEL (14) BUN 13 mg/dL 6-24 Not Available [facility] Department [address] [place], [address], 06/22/2024 20:09:20 06/22/20 24 06/22/2024 COMP. METAB OLIC PANEL (14) creatinine 0.51 mg/dL 0.76-1 .27 below low normal Not Available [facility] Department [address] [place], [address], 06/22/2024 20:09:20 06/22/20 24 06/22/2024 COMP. METAB OLIC PANEL (14) eGFR 120 >=60 Units for eGFR value s are mL/mi n/1.7 3 The eGFR Calcu latio n has not been valid ated for patie nts under the age of 18. If test resul ts are displ ayed for a patie nt under the age of 18, disre mary that value . Not Available [facility] Department [address] [place] [address], [address], 06/22/2024 20:09:20 06/22/20 24 06/22/2024 COMP. METAB OLIC PANEL (14) BUN/creatini ne ratio 25 9-23 above high normal Not Available [facility] Department [address] [place] [address], [address], 06/22/2024 20:09:20 06/22/20 24 06/22/2024 COMP. METAB OLIC PANEL (14) sodium 136 mmol/ L 134-14 4 Not Available [facility] Department [address] [place] [address], [address], 06/22/2024 20:09:20 06/22/20 24 06/22/2024 COMP. METAB OLIC PANEL (14) potassium 4.5 mmol/ L 3.5-5. 2 Not Available [facility] Department [address] [place] [address], [address], 06/22/2024 20:09:20 06/22/20 24 06/22/2024 COMP. METAB OLIC PANEL (14) chloride 104 mmol/ L 96-106 Not Available [facility] Department [address] [place] [address], [address], 06/22/2024 20:09:20 06/22/20 24 06/22/2024 COMP. METAB OLIC PANEL (14) carbon dioxide, total 23 mmol/ L 20-29 Not Available [facility] Department [address] [place] [address], [address], 06/22/2024 20:09:20 06/22/20 24 06/22/2024 COMP. METAB OLIC PANEL (14) calcium 8.8 mg/dL 8.7-10 .2 Not Available [facility] Department [address] [place], [address], 06/22/2024 20:09:20 06/22/20 24 06/22/2024 COMP. METAB OLIC PANEL (14) protein, total 6.2 g/dL 6.0-8. 5 Not Available [facility] Department [address] [place], [address], 06/22/2024 20:09:20 06/22/20 24 06/22/2024 COMP. METAB OLIC PANEL (14) albumin 4.0 g/dL 3.9-4. 9 Not Available [facility] Department [address] [place], [address], 06/22/2024 20:09:20 06/22/20 24 06/22/2024 COMP. METAB OLIC PANEL (14) globulin, total 2.2 g/dL 1.5-4. 5 Not Available [facility] Department [address] [place], [address], 06/22/2024 20:09:20 06/22/20 24 06/22/2024 COMP. METAB OLIC PANEL (14) A/G ratio 2.0 1.2-2. 2 Not Available [facility] Department [address] [place], [address], 06/22/2024 20:09:20 06/22/20 24 06/22/2024 COMP. METAB OLIC PANEL (14) bilirubin, total 0.4 mg/dL 0.0-1. 2 Not Available [facility] Department [address] [place], [address], 06/22/2024 20:09:20 06/22/20 24 06/22/2024 COMP. METAB OLIC PANEL (14) alkaline phosphatase 57 IU/L 44-121 Not Available [facility] Department [address] [place], [address], 06/22/2024 20:09:20 06/22/20 24 06/22/2024 COMP. METAB OLIC PANEL (14) AST (SGOT) 19 IU/L 0-40 Not Available [facility] Department [address] [place], [address], 06/22/2024 20:09:20 06/22/20 24 06/22/2024 COMP. METAB OLIC PANEL (14) ALT (SGPT) 16 IU/L 0-32 Not Available [facility] Department [address] [place], [address], 06/22/2024 20:09:20 06/22/2006/22/2024 CBC, PLATE LET, NO DIFFE RENTI AL WBC 8.6 x10e3 /uL 3.4-10 .8 Not Available [facility] Department [address] [place] [address], [address], 06/22/2024 20:09:21 06/22/2006/22/2024 CBC, PLATE LET, NO DIFFE RENTI AL RBC 4.07 x10e6 /uL 3.77-5 .28 Not Available [facility] Department [address] [place] [address], [address], 06/22/2024 20:09:21 06/22/20 24 06/22/2024 CBC, PLATE LET, NO DIFFE RENTI AL hemoglobin 13.4 g/dL 11.1-1 5.9 Not Available [facility] Department [address] [place], [address], 06/22/2024 20:09:21 06/22/2006/22/2024 CBC, PLATE LET, NO DIFFE RENTI AL hematocrit 39.5 % 34.0-4 6.6 Not Available [facility] Department [address] [place] [address], [address], 06/22/2024 20:09:21 06/22/20 24 06/22/2024 CBC, PLATE LET, NO DIFFE RENTI AL MCV 97 fL 79-97 Not Available [facility] Department [address] [place], [address], 06/22/2024 20:09:21 06/22/20 24 06/22/2024 CBC, PLATE LET, NO DIFFE RENTI AL MCH 32.9 pg 26.6-3 3.0 Not Available [facility] Department [address] [place], [address], 06/22/2024 20:09:21 06/22/20 24 06/22/2024 CBC, PLATE LET, NO DIFFE RENTI AL MCHC 33.9 g/dL 31.5-3 5.7 Not Available [facility] Department [address] [place], [address], 06/22/2024 20:09:21 06/22/20 24 06/22/2024 CBC, PLATE LET, NO DIFFE RENTI AL RDW 12.0 % 11.5-1 4.5 Not Available [facility] Department [address] [place] [address], [address], 06/22/2024 20:09:21 06/22/2006/22/2024 CBC, PLATE LET, NO DIFFE RENTI AL platelets 286 x10e3 /uL 150-45 0 Mean Plate let Volum e 11.0 fL 8.9-1 2.7 N Not Available [facility] Department [address] [place] [address], [address], 06/22/2024 20:09:21 06/22/20 24 06/22/2024 CBC, PLATE LET, NO DIFFE RENTI AL NRBC 0 % 0-0 Not Available [facility] Department [address] [place] [address], [address], 06/22/2024 20:09:21 06/22/20 24 06/23/2024 TSH RFX ON ABNOR MAL TO FREE T4 TSH 1.840 uIU/m L 0.450- 4.500 Not Available [facility] ([facility]) [address] [place], [address], 06/27/2024 16:14:54 06/22/2006/22/2024 FOOD ALLER GY PROFI LE class description COMMEN T Level s of Speci fic IgE Class Descr iptio n of Class ----- ----- ----- ----- ----- -- ----- ----- ----- ----- ----- < 0.10 0 Negat tommy 0.10 - 0.31 0/I Equiv ocal/ Low 0.32 - 0.55 I Low 0.56 - 1.40 II Moder ate 1.41 - 3.90 III High 3.91 - 19.00 IV Very High 19.01 - 100.0 0 V Very High >100. 00 Very High Not Available [facility] ([facility]) [address] [place], [address], 06/27/2024 16:14:56 06/22/20 24 06/27/2024 FOOD ALLER GY PROFI LE E542-PjY egg white <0.10 Not Available [facility] ([facility]) [address] [place], [address], 06/27/2024 16:14:56 06/22/2006/27/2024 FOOD ALLER GY PROFI LE T364-YeW peanut <0.10 Not Available [facility] ([facility]) [address] [place], [address], 06/27/2024 16:14:56 06/22/20 24 06/27/2024 FOOD ALLER GY PROFI LE W058-HjS soybean <0.10 Not Available [facility] ([facility]) [address] [place], [address], 06/27/2024 16:14:56 06/22/20 24 06/27/2024 FOOD ALLER GY PROFI LE S231-BeU milk <0.10 Not Available [facility] ([facility]) [address] [facility], [place], [address], 06/27/2024 16:14:56 06/22/2006/27/2024 FOOD ALLER GY PROFI LE B551-JoL clam <0.10 Not Available [facility] ([facility]) [address] [facility], [place], [address], 06/27/2024 16:14:56 06/22/2006/27/2024 FOOD ALLER GY PROFI LE T667-XxC shrimp <0.10 Not Available [facility] ([facility]) [address] [facility], [place], [address], 06/27/2024 16:14:56 06/22/2006/27/2024 FOOD ALLER GY PROFI LE R111-ChB walnut <0.10 Not Available [facility] ([facility]) [address] [facility], [place], [address], 06/27/2024 16:14:56 06/22/2006/27/2024 FOOD ALLER GY PROFI LE S647-LkJ codfish <0.10 Not Available [facility] ([facility]) [address] [facility], [place], [address], 06/27/2024 16:14:56 06/22/2006/27/2024 FOOD ALLER GY PROFI LE C118-MzR scallop <0.10 Not Available [facility] ([facility]) [address] [facility], [place], [address], 06/27/2024 16:14:56 06/22/20 24 06/27/2024 FOOD ALLER GY PROFI LE N070-MoS wheat <0.10 Not Available [facility] ([facility]) [address] [place], [address], 06/27/2024 16:14:56 06/22/20 24 06/27/2024 FOOD ALLER GY PROFI LE K763-AbK corn <0.10 Not Available [facility] ([facility]) [address] [place], [address], 06/27/2024 16:14:56 06/22/20 24 06/27/2024 FOOD ALLER GY PROFI LE U237-WeE sesame seed <0.10 Not Available [facility]) [address] [facility], [place], [address], 06/27/2024 16:14:56 09/01/20 24 09/01/2024 Chori ogona dotro pin (preg caridad test) [Pres ence] in Urine HCG qual urine Negati ve text: negati ve HCG Qual Urine Negat tommy Negat tommy 09/01 11:33 AM [facility] Not Available Not Available 10/19/2024 18:02:02 09/01/20 24 09/01/2024 Chori ogona dotro pin (preg caridad test) [Pres ence] in Urine interpretati on and review of laboratory results Normal Not Available Not Available 10/07 18:02:02 10/20/19 25 10/20/2024 SARS- CoV+S ARS-C oV-2 (COVI D-19) Ag [Pres ence] in Respi rator y syste m speci men by Rapid immun oassa y influenza A Ag, POC Negati ve text: negati ve Influ marilee A Ag, POC Negat tommy Negat tommy [facility] Not Available Not Available 12/15/2024 14:27:36 10/20/19 25 10/20/2024 SARS- CoV+S ARS-C oV-2 (COVI D-19) Ag [Pres ence] in Respi rator y syste m speci men by Rapid immun oassa y influenza B Ag, POC Negati ve text: negati ve Influ marilee B Ag, POC Negat tommy Negat tommy [facility] Not Available Not Available 12/15/2024 14:27:36 10/20/19 25 10/20/2024 SARS- CoV+S ARS-C oV-2 (COVI D-19) Ag [Pres ence] in Respi rator y syste m speci men by Rapid immun oassa y covid-19 Ag POC Presum ptive Negati ve text: presum ptive negati ve, invali d COVID -19 Ag POC Presu mptiv e Negat tommy Presu mptiv e Negat tommy, Inval id [facility] Not Available Not Available 12/15/2024 14:27:36 10/20/19 25 10/20/2024 SARS- CoV+S ARS-C oV-2 (COVI D-19) Ag [Pres ence] in Respi rator y syste m speci men by Rapid immun oassa y interpretati on and review of laboratory results Normal Not Available Not Available 12/05 14:27:36 Result Notes None recorded. Problems Name Problem SNOMED Code Status Onset Date Resolution Date Notes Provider Name and Address Organization Details Recorded Time Morbid obesity 052016738 Active 024 Dali Levi APN, LANGUAGE INTERPRETER-C Attn: [facility],[address] [place], [address], [facility] 4 14:47:29 Mixed anxiety and depressive disorder 585547139 Active 024 Dali Levi APN, LANGUAGE INTERPRETER-C Attn: [facility],[address] [place], [address], [facility] - [facility] 4 14:47:34 Smoker 35279465 Active 024 Dali Levi APN, LANGUAGE INTERPRETER-C Attn: [facility],[address] [facility], [place], [address], [facility] - SI 14:52:00 Problem Notes None recorded. Procedures Surgical History Date Name Laterality Status Provider Name and Address Organization Details Recorded Time 03/17/20 17 section completed KYM Penn [place] Marcelina [facility] 06/19/2024 14:21:06 insertion of osseointegrated bone anchor completed KYM Penn - [facility] 12/18/2024 09:08:33 Imaging Results None recorded. Procedure Notes None recorded. Medical Equipment None Reported. Allergies No known drug allergies Medications Name Sig Start Date Stop Date Status Note LastModified by Organization Details LastModified Time amoxicillin 500 mg capsule TAKE 1 CAPSULE BY MOUTH EVERY 8 HOURS FOR 10 DAYS 12/18 completed Not Available Not Available Not Available nicotine 14 mg/24 hr daily transdermal patch APPLY 1 PATCH TOPICALLY TO THE SKIN EVERY DAY active Not Available Not Available No t Available cetirizine 10 mg tablet TAKE 1 TABLET BY MOUTH ONCE DAILY active Not Available Not Available No t Available hydrocodone 5 mg-acetamin ophen 325 mg tablet TAKE 2 TABLETS BY MOUTH EVERY 4 HOURS NEEDED FOR PAIN. DO NOT EXCEED 8 TABLETS IN ONE DAY 12/18 completed Not Available Not Available Not Available Paxil 20 mg tablet Take 1 tablet every day by oral route. 2024 active Not Available Not Available Not Avai lable ondansetron HCl 4 mg tablet TAKE 1 TABLET BY MOUTH EVERY 6 HOURS NEEDED FOR NAUSEA OR VOMITING 12/18 completed Not Available Not Available Not Available penicillin V potassium 500 mg tablet 06/19 completed Not Available Not Available Not Available amoxicillin 500 mg tablet TAKE 1 TABLET BY MOUTH THREE TIMES DAILY FOR 10 DAYS 06/19 completed Not Available Not Available Not Available ofloxacin 0.3 % ear drops INSTILL 5 DROPS TO RIGHT EAR TWICE DAILY active Not Available Not Available No t Available cephalexin 500 mg capsule TAKE 1 CAPSULE BY MOUTH FOUR TIMES DAILY FOR 14 DAYS 12/18 completed Not Available Not Available Not Available docusate sodium 100 mg capsule TAKE 1 CAPSULE BY MOUTH TWICE DAILY 12/18 completed Not Available Not Available Not Available ergocalcife rol (vitamin D2) 1,250 mcg (50,000 unit) capsule 06/19 completed Not Available Not Available Not Available azelastine 137 mcg (0.1 %) nasal spray ADMINISTE R 1 TO 2 SPRAYS IN EACH NOSTRIL TWICE DAILY active Not Available Not Available No t Available cefdinir 300 mg capsule TAKE 1 CAPSULE BY MOUTH TWICE DAILY FOR 10 DAYS 06/19 completed Not Available Not Available Not Available amoxicillin 875 mg-potjoannu m clavulanate 125 mg tablet TAKE 1 TABLET BY MOUTH TWICE DAILY FOR 10 DAYS 12/18 completed Not Available Not Available Not Available Tri-Sprinte c (28) 0.18 mg(7)/0.215 mg(7)/0.25 mg(7)-0.035 mg tablet Take 1 tablet every day by oral route for 28 days. 06/19 completed Not Available Not Available Not Available Ortho-Cycle n (28) 0.25 mg-35 mcg tablet Take 1 tablet every day by oral route with meals for 28 days. 2014 active Not Available Not Available Not Avai lable nitrofurant oin monohydrate /macrocryst als 100 mg capsule TAKE 1 CAPSULE BY MOUTH EVERY 12 HOURS WITH FOOD FOR 7 DAYS 06/19 completed Not Available Not Available Not Available Maritza 14 mcg/24 hr (up to 3 years) 13.5 mg intrauterin e device Take by intrauter ine route. active Not Available Not Available No t Available Vitals Date Recorded Systolic And Diastolic Provider Name and Address Organization Details Last Updated DateTime 12/18/2024 136/82 mm[Hg] Dali Levi APN, LANGUAGE INTERPRETER-C Attn: [facility],[address] [place], [address], [place] - [facility] 12/18/2024 09:35:09 Date Recorded Body height Body mass index (BMI) Body weight Oxygen saturation Oxygen saturation in Arterial blood by Pulse oximetry Respiratory rate Body temperature Heart rate Systolic And Diastolic Provider Name and Address Organization Details Last Updated DateTime 5 162.56 cm 43.6 kg/m2 995315. 46 g 98 % 98 % 16 /min 98 [degF] 86 /min 142/92 mm[Hg] Misa Ballard Rohith [place] - [facility] 5 09:11:18 Date Recorded Body height Body mass index (BMI) Body weight Oxygen saturation Oxygen saturation in Arterial blood by Pulse oximetry Respiratory rate Body temperature Heart rate Systolic And Diastolic Provider Name and Address Organization Details Last Updated DateTime 4 162.56 cm 40.7 kg/m2 631417. 39 g 97 % 97 % 16 /min 97.5 [degF] 92 /min 135/75 mm[Hg] KYM Penn [place] [facility] 14:26:22 Date Recorded Body weight Body mass index (BMI) Body height Systolic And Diastolic Provider Name and Address Organization Details Last Updated DateTime 07/26/2014 66540.474 g 33.3 kg/m2 165.1 cm 140/78 mm[Hg] Chrissy Aldridge [facility] 07/26/2014 14:42:27 Date Recorded Body height Body mass index (BMI) Body weight Systolic And Diastolic Provider Name and Address Organization Details Last Updated DateTime 08/28/2015 162.56 cm 35.2 kg/m2 50005.435 85 g 124/78 mm[Hg] Salome Oconnell [facility] 08/28/2015 14:18:49 Social History Question Answer Notes LastModified by Organizat ion Details LastModified Time Tobacco Smoking Status Current Some Day Smoker on and off KYM Penn, [facility] 12/18/2024 09:07:33 Are You Blind Or Do You Have Difficulty Seeing? No Contacts Information not available 06/19/2024 What Is Your Level Of Caffeine Consumption? Heavy Coffee Information not available 06/19/2024 In The 14 Days Before Symptom Onset, Have You Had Close Contact With A Laboratory-confir med COVID-19 While That Case Was Ill? No Information not available 06/19/2024 In The 14 Days Before Symptom Onset, Have You Had Close Contact With A Person Who Is Under Investigation For COVID-19 While That Person Was Ill? No Information not available 06/19/2024 Have You Been To An Area Known To Be High Risk For COVID-19? Yes Works In School Information not available 06/19/2024 Are You Deaf Or Do You Have Serious Difficulty Hearing? Yes Information not available 06/19/2024 What Type Of Diet Are You Following? REGULAR Healthy Meals, High Protein Information not available 06/19/2024 Are There Any Guns Present In Your Home? No Information not available 06/19/2024 Marital Status Single Informatio n not available 07/26/2014 What Was The Date Of Your Most Recent Tobacco Screening? 12/18/2024 Information not available 12/18/2024 How Many Children Do You Have? 1 Information not available 06/19/2024 What Is Your Relationship Status? Information not available 06/19/2024 Do You Use Your Seat Belt Or Car Seat Routinely? Yes Information not available 06/19/2024 Are You Sexually Active? No Information not available 07/26/2014 Do You Have Smoke And Carbon Monoxide Detectors In Your Home? Yes Information not available 06/19/2024 At What Age Did You Start Smoking Tobacco? 12 Information not available 06/19/2024 Are You Passively Exposed To Smoke? Yes Information no t available 06/19/2024 How Much Tobacco Do You Smoke? 0.25 PPD Information not available 06/19/2024 Do You Use Sunscreen Routinely? Yes Information not available 06/19/2024 Has Tobacco Cessation Counseling Been Provided? Yes Information not available 06/19/2024 On What Date Was Tobacco Cessation Counseling Provided? 12/18/2024 Information not available 12/18/2024 How Many Years Have You Smoked Tobacco? 28 12/18/24 Information not available 12/18/2024 Sex: Female Functional Status Question Answer Note LastModified by Organizat ion Details LastModified Time Do you use any illicit or recreational drugs? No Information not available 06/19/2024 Do you or have you ever used any other forms of tobacco or nicotine? No Information not available 06/19/2024 What is your level of alcohol consumption? Occasional Information not available 07/26/2014 Are you currently employed? Yes Information not available 06/19/2024 Are you able to care for yourself independently? Yes Information not available 06/19/2024 What is your occupation? teacher [employer] Information not available 06/19/2024 What is your exercise level? Moderate 3x weekly Information not available 06/19/2024 Mental Status Question Answer Note LastModified by Organization D etails LastModified Time Do you feel stressed (tense, restless, nervous, or anxious, or unable to sleep at night)? [id number] Information not available 06/19/2024 Family History Relationship Description Onset Age of this Age Resolved Age Notes LastModified by Organization Details LastModified Time Mother Family history of breast cancer jschulterma Not available 06/06 14:12:48 Mother Hypertensive disorder jschulterma Not available 06/06 14:15:17 Mother Hypercholest erolemia jschulterma Not available 06/06 14:15:23 Mother Alcoholism jschulterma Not avai lable 06/19/2024 14:15:47 Paternal Aunt Malignant neoplasm of cervix uteri x3 aunts jschulterma Not available 06/19/2024 14:14:12 Father Myocardial infarction jschulterma Not available 14:14:41 Father Diabetes mellitus jschulterma Not available 06/06 14:14:52 Father Hypercholest erolemia jschulterma Not available 06/06 14:15:23 Father Alcoholism jschulterma Not avai lable 06/19/2024 14:15:34 Brother Alcoholism jschulterma Not danilo ilable 06/19/2024 14:15:43 Medical History Condition Response Coronary Artery Disease N Other N High Blood Pressure N Atrial Fibrillation N Thyroid Problems N Kidney or Bladder Problems N GI Problems N Depression N COPD N Blood Clots N Have you had a mammogram in the last yea r? Y Skin Problems N Eating Disorder N Anemia Y Heart Attack (AL) N Anxiety Disorder Y Diabetes N Muscle, Joint, or Bone Problems N Arthritis N Seizures/Epilepsy N Have you had a colonoscopy in the last 1 0 years? N Acid Reflux (GERD) N Cancer N Stroke N Asthma N Allergies Y Substance Abuse N High Cholesterol N Hepatitis N Liver Disease N Headaches N Heart Failure N Osteoporosis N Gynecological History Statement/Question Response Abnormal Pap Y Date of Last Mammogram Flow Moderate Date of LMP 12/16/2024 STIs/STDs N HPV Vaccine N Duration of Flow (days) 2 Age at Menarche 9 Current Control Method IUD Sexually Active? Y Menses Monthly Y Date of Last Pap Smear LMP Definite Desired Control Method BCPs Obstetrics History GPAL:G 1 P 1 0 0 1 Type Value Full Term 1 Living 1 Total 1 Immunizations Vaccine Type Date Status Note Provider Chava reese and Address Organization Details Recorded Time MMR 6 completed Dali Levi, DISTRIBUTION OPERATION SUPERVISOR, LANGUAGE INTERPRETER-C Attn: [address] [place], [place], [address] [place] [address], [place] - [facility] 06/19/2024 14:35:55 MMR 2 completed Dali Levi, DISTRIBUTION OPERATION SUPERVISOR, LANGUAGE INTERPRETER-C Attn: [address] [place], [place], [address] [place] [address], [place] [facility] 06/19/2024 14:35:55 COVID-19, mRNA, LNP-S, PF, 100 mcg/0.5mL dose or 50 mcg/0.25mL dose 1 completed Dali Levi, DISTRIBUTION OPERATION SUPERVISOR, LANGUAGE INTERPRETER-C Attn: [address] [place], [address] [place] [address], [place] [facility] 06/19/2024 14:35:55 COVID-19, mRNA, LNP-S, PF, 100 mcg/0.5mL dose or 50 mcg/0.25mL dose 1 completed Dali Levi, DISTRIBUTION OPERATION SUPERVISOR, LANGUAGE INTERPRETER-C Attn: [address] [place], [place], [address] [place] [address] [place] [facility] 06/19/2024 14:35:55 COVID-19, mRNA, LNP-S, PF, 30 mcg/0.3 mL dose 1 completed Dali Levi, DISTRIBUTION OPERATION SUPERVISOR, LANGUAGE INTERPRETER-C Attn: [address] [place], [address] [place] [address], [place] [facility] 06/19/2024 14:35:55 COVID-19, mRNA, LNP-S, bivalent, PF, 30 mcg/0.3 mL dose 2 completed Dali Levi, DISTRIBUTION OPERATION SUPERVISOR, LANGUAGE INTERPRETER-C Attn: [address] [place], [address] [place] [address], [facility] - [facility] 06/19/2024 14:35:55 Tdap 2 completed Dali Levi DISTRIBUTION OPERATION SUPERVISOR, LANGUAGE INTERPRETER-C Attn: Accounting,[address] [facility], [place], [place], [address] [place] [address], [facility] - [facility] 06/19/2024 14:35:55 DTP 4 completed Dali Levi DISTRIBUTION OPERATION SUPERVISOR, LANGUAGE INTERPRETER-C Attn: Accounting,[address] [facility], [place], [address] [place] [address], [facility] - [facility] 06/19/2024 14:35:55 DTP 6 completed Dali Levi DISTRIBUTION OPERATION SUPERVISOR, LANGUAGE INTERPRETER-C Attn: Accounting,[address] [facility], [place], [address] [place] [address], [facility] - [facility] 06/19/2024 14:35:55 DTP 4 completed Dali Levi DISTRIBUTION OPERATION SUPERVISOR, LANGUAGE INTERPRETER-C Attn: Accounting,[address] [facility], [place], [address] [place] [address], [facility] - [facility] 06/19/2024 14:35:55 DTP 7 completed Dali Levi DISTRIBUTION OPERATION SUPERVISOR, LANGUAGE INTERPRETER-C Attn: Accounting,[address] [facility], [place], [place], [address] [place] [address] - [facility] 06/19/2024 14:35:55 OPV, trivalent 4 completed Dali Levi DISTRIBUTION OPERATION SUPERVISOR, LANGUAGE INTERPRETER-C Attn: Accounting,[address] [facility], [place], [address] [place] [address], [facility] - [facility] 06/19/2024 14:35:55 OPV, trivalent 6 completed Dali Levi DISTRIBUTION OPERATION SUPERVISOR, LANGUAGE INTERPRETER-C Attn: Accounting,[address] [facility], [place], [address] [place] [address], [facility] - [facility] 06/19/2024 14:35:55 OPV, trivalent 4 completed Dali Levi DISTRIBUTION OPERATION SUPERVISOR, LANGUAGE INTERPRETER-C Attn: Accounting,[address] [facility], [place], [address], [facility] - [facility] 06/19/2024 14:35:55 OPV, trivalent 8 completed Dali Levi, DISTRIBUTION OPERATION SUPERVISOR, LANGUAGE INTERPRETER-C Attn: Accounting,[address] [facility], [place], [address] [place] [address], [facility] - [facility] 06/19/2024 14:35:55 Td (adult), 2 Lf tetanus toxoid, preservative free, adsorbed 8 completed Dali Levi, DISTRIBUTION OPERATION SUPERVISOR, LANGUAGE INTERPRETER-C Attn: Accounting,[address] [facility], [place], [address], [facility] - [facility] 06/19/2024 14:35:55 Td (adult), 2 Lf tetanus toxoid, preservative free, adsorbed 7 completed Dali Td, DISTRIBUTION OPERATION SUPERVISOR, LANGUAGE INTERPRETER-C Attn: Accounting,[address] [facility], [place], [address] [place] [address], [facility] - [facility] 06/19/2024 14:35:55 Influenza, split virus, quadrivalent, PF 2 completed Dali Levi, DISTRIBUTION OPERATION SUPERVISOR, LANGUAGE INTERPRETER-C Attn: Accounting,[address] [facility], [place], [address] [place] [address], [facility] - [facility] 06/19/2024 14:35:55 Influenza, split virus, trivalent, preservative 4 completed KYM [place], [place] - [place] 06/26/2024 11:50:47 Past Encounters Encounter ID Performer Location Encounter Start Date Encounter Closed Date Diagnosis/Indication Diagnosis SNOMED-CT Code Diagnosis ICD10 Code Diagnosis IMO Codes Diagnosis Note [id number] Sonja johansen [facility] Short[facility] (Fam Med) [address] [place] [address] 07/26/2014 13:50:25 07/26/2014 15:24:49 Contraception care education [id number] [facility] ion care management [id number] v25.09 [id number] Eleni Duff [facility] ([facility] 122) 2 [facility] [address] [place] [address] 08/28/2015 13:56:11 08/28/2015 16:08:03 Gynecologic examination 67300501 Z01.419 [place] ce of oral contraception 651535776 Z30.41 [id number] MD [facility] (Adult Med) [address] [place] [address] 06/19/2024 13:39:03 07/08/2024 11:24:23 Adult health examination 079443909 Z00.01 Encouraged routine GATE TENDER, vision, dental exams, well balanced diet. Smoker 44832703 F17.200 Smoking cessation encouraged . Morbid obesity 494669767 E66.01 weight loss advised Hearing loss 75238647 H9 1.93 cont with ent Mixed anxi ety and depressive disorder 500729162 F41.8 prior use of zoloft, 5 months ago, changed to paxilcont with paxil Allergic reaction 019776 005 T78.49XA increased issues with allergies, they tested everything except foods, will add to order [id number] MD [facility] (Adult Med) [address] [place] [address] 06/22/2024 14:19:30 06/28/2024 11:04:01 Administration of influenza vaccine 62474597 Z23 [id number] MD [facility] (Adult Med) [address] [place] [address] 12/18/2024 08:49:01 12/19/2024 16:24:46 Mixed anxiety and depressive disorder 980457548 F41.8 prior use of zoloft, 5 months ago, changed to paxilstabl e, denies SI or HIcont with paxil Morbid obesity 290682187 E66.01 weight loss adviseddwp recording food intake, calculate BETH, eat in deficit and increase weight training Smoker 81977571 F17.200 Smoking cessation encouraged . Health Concerns Section Related Observation LastModified by Organization Detai ls LastModified Time None Recorded Concern Status LastModified by Organization Details LastModified Time None Recorded Advance Directives Directive None Recorded Payers Insurance Date Sequence Insurance Name Policy Number Policy Maria Covered Member ID Maria Member ID Guarantor Name 12/16/2024 1 [facility] - DOS ON OR AFTER 21 (MEDICAID REPLACEMENT - HMO) Magalie Gutierres [id number] Magalie Gutierres 08/28/2015 SLIDING FEE SCHEDULE - DISCOUNT Magalie Bhavik 05/03/2024 SLIDING FEE SCHEDULE - DISCOUNT Magalie Gutierres Notes Date Note Type Note Provider Name and Address Organization Details Recorded Time 5 text/html Annual GYNReported by PatientHistoryFor history, patient reportsno gynecologic complaints.Genitourinary symptomsFor menstrual cycle, patient reportsnormal menses. For urinary symptoms, patient reportsno hematuriaandno incontinence. For vulva, patient reportsno genital lesion. For vagina, patient reportsnormal vaginal discharge.Breast symptomsFor breast, patient reportsno breast pain,no breast lump, andno nipple discharge.ContraceptionFo r current contraception, patient reportssatisfied with current contraceptionandoral contraceptives.Endocrine symptomsFor sexual complaints, patient reportsno sexual complaints,no pain during intercourse, andnormal libido. For menopausal symptoms, patient reportsno menopausal symptomsandnormal vaginal lubrication.Psychological symptomsFor psychological symptoms, patient reportsno depression,no anxiety, andno pmdd.Preventative measuresFor preventive measures, patient reportsencourage self breast examination,encourage regular exercise,encourage no tobacco use,encourage regular mammograms starting age 40, andfollowed with q3 year pap smear and high risk hpv typing. 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 left ear feels pressure and hard of hearing today pt c/o weight gain- approx 27 lbs in a month. Has a healthy diet Discuss options to quit smoking, half to full pack or nothing depending on the day, has tried cold turkey and patches in past; Dali Levi APN, LANGUAGE INTERPRETER-C Attn: Accounting,[address] [facility], [place], [address], [facility] - [facility] 07/04/2024 16:36:29 5 text/html pt works out 3x weekly and eats healthy but still gaining weight Has been seeing chiropractor for lower back pain Discuss options to quit smoking, half to full pack or nothing depending on the day, has tried cold turkey and patches in past; Dali Levi APN, LANGUAGE INTERPRETER-C Attn: Accounting,[address] [facility], [place], [address], [place] [facility] 12/18/2024 09:36:05 OBGyn Episode Ob Episode Information Episode Created Date Number of Fetuses Patient Bloodtype Patient rh Status Prepregnancy Weight lbs Domestic Partner Domestic Partner Phone Father Name Customer Project Manager Status 06/19/20 24 1 CLOSED Fetus Data First Name Last Name Admitted to NICU Weight (g) Sex Living Outcome Pediatric Complications Fetus ID Race Codes Race Delivery Type M Full Term [id number] Kings Calculation Initial Kings Date Initial Exam Date Initial Exam Provider Initial Ultrasound Date Last Menstrual Period Date Ultra Sound Weeks Gestation 0 Eighteen To Twenty Week Kings Update Ultra Sound Date Fundal Height At Umbil Quickening Date Ultra Sound Latest Weeks Gestation Final Kings Confirmed By Final Kings Confirmed Date Final Kings Date Ultra Sound Latest Days Gestation 0 0 Menstrual History Last Menstrual Date Menses Monthly On Bcp Conception Prior Menses Frequency Hcg Plus Date Menarche Onset Age Delivery Information Delivery Date Delivery Type Labor Anesthesia Weeks Gestation Incision Type Labor Labor Length Hrs Delivered By Post Complications Tubal Sterilization Discharge Date Comments 7 Discharge Information Feeding Method Contraceptive Method Maternal HG B and HCT Levels
--- OUTSIDE RECORDS SUMMARY | 2025-06-29 09:49 | XMS_ITS | Clinical Summary ---
Author Organization [facility] Address [address] [place] [address] Care Team Providers Care Intake Assessor Name Role Phone Russ Chowdhury MD Primary Care Provider [phone] Source Comments [facility],non-owned Affiliates and Associated Physician Practices is amultiple site organization consisting of ambulatory clinics and hospital sitesin [place], [place], [place] and [place]. This disclosure is being madepursuant to the Care Everywhere program and may not contain all information available regarding this patient. Last updated 18.[facility] Allergies Active Allergy Reactions Criticality Noted Date [...] Active azelastine (Astelin) 0.1 % nasal spray [place] 1 (one) spray to 2 (two) sprays into each nostril 2 times daily Aim tip of spray bottle towards the SAME EYE as the nostril you are spraying in (e.g. when spraying into the left nostril, aim it towards the left eye) 30 mL 3 4 Active Multiple Vitamin (Multi-Vitamin ) TABS Take 1 (one) tablet by mouth once daily Active PARoxetine (Paxil) 20 MG tablet Take 1 (one) tablet by mouth once daily Active multivitamin daily tablet Take 1 (one) tablet by mouth daily with food Active Other Jayde IUD Active docusate sodium (Colace) 100 MG capsule Take 1 (one) capsule by mouth 2 times daily 30 capsule 4 Active ofloxacin (Floxin) 0.3 % otic solution Instill 5 (five) drops into both ears once daily 5 mL 5 Active cetirizine (ZyrTEC) 10 MG tablet Take 1 (one) tablet by mouth once daily 90 tablet 2 5 Active cetirizine (ZyrTEC) 10 MG tablet Take 1 (one) tablet by mouth once daily 025 Discontin ued(Reord er) Active Problems Problem Noted Date Diagnosed Date Mixed anxiety and depressive disorder 06/19/2024 Morbid obesity 06/19/2024 Smoker 06/19/2024 Gastrocnemius equinus of left lower extremity Plantar fasciitis 03/11/2021 Encounters Date Type Department Care Team Description 05/31/2025 Refill [facility] - ENT [address] [place] [phone] Darnell Vanessa APRN-AUTO TECHNICIAN MEDICATION REFILL 05/03/2025 Refill [facility] - ENT [address], [facility] [address] [place] [address] Hussein Elmore MD MEDICATION REFILL 04/28/2025 Refill [facility] - ENT [address] [place] [phone] Hussein Elmore MD Refill Request from Last 3 Months Immunizations Immunization Administration Dates Next Due INFLUENZA [...] on file Legal Sex Female 12:18 PM TEACHER VISUALLY IMPAIRED Gender Identity Not on file Sexual Orientation Not on file Last Filed Vital Signs Vital Sign Reading Time Taken Comments Blood Pressure 118/70 09/01/2024 5:00 PM TEACHER VISUALLY IMPAIRED Pulse 80 09/01/2024 5:03 PM TEACHER VISUALLY IMPAIRED Temperature 36.4 C (97.6 F) 09/01/2024 5:00 PM TEACHER VISUALLY IMPAIRED Respiratory Rate 12 09/01/2024 5:03 PM TEACHER VISUALLY IMPAIRED Oxygen Saturation 93% 09/01/2024 5:02 PM TEACHER VISUALLY IMPAIRED Inhaled Oxygen Concentration - - Weight 104.3 kg (230 lb) 10/30/2024 2:30 PM TEACHER VISUALLY IMPAIRED Height 162.6 cm (5' 4) 10/30/2024 2:30 PM TEACHER VISUALLY IMPAIRED Body Mass Index 39.48 10/30/2024 2:30 PM TEACHER VISUALLY IMPAIRED Plan of Treatment Health Maintenance Due Date Last Done Comments LIPID TESTING 1983 HIV SCREENING 1998 HEPATITIS C SCREENING 03/05/2001 HEPATITIS B VACCINE (1 of 3 - 19+ 3-dose series) 2002 PNEUMOCOCCAL VACCINE (1 of 2 - PCV) 2002 PAP SMEAR 2004 HPV VACCINE (1 - 3-dose SCDM series) 2010 MAMMOGRAM 02/14/2021 02/14/2019 SCREENING FOR DIABETES 07/06/2023 DEPRESSION SCREENING 09/06/2024 COVID-19 VACCINE ( season) 2025 06/02/2022, 07/23/2021, 01/09/2021, Additional history exists INFLUENZA VACCINE (#1) 2025 , 06/02/2022, 06/30/2021, [...] this topic Medical Devices Implanted Type Area Business Continuity Specialist Device Identifier Shelf Expiration Date Model / Serial / Lot Impl Coclr 4mm 4.5mm Ponto Bhx 12mm W 1 - [id number] Implanted:Qty: 1 on 09/01/2024 by Hussein Elmore MD at [facility] Left: Ear [employer] 06/11/2028 [id number] / [id number] / [id number] Impl Coclr 4mm 4.5mm Ponto Bhx 12mm W 1 - [id number] Implanted:Qty: 1 on 09/01/2024 by Hussein Elmore MD at [facility] Right: Ear [employer] 01/26/2028 [id number] / [id number] / [id number] Insurance [place] [employer] [facility] Care Teams Intake Assessor Relationship Specialty Start Date End Date Russ Chowdhury MD [address] [place] [id number] PCP - General Family Medicine 07/06/23
== END 2025-06-29 09:36 | disposition home or self-care (01) ==
LOC: ANHFOHIMG 09:37
PROVIDERS: PCP Nurse Practitioner Family; Visit Provider Obstetrics & Gynecology
DX: Z12.31 Encounter for screening mammogram for malignant neoplasm of breast (principal); N95.1 Menopausal and female climacteric states
CPT/HCPCS: 77063; 77067